=== PATIENT | female | born 1955 | race Caucasian/White ===

== ENCOUNTER 2019-01-22 09:59 | Emergency (ER) | payer BC ==
[2019-01-22] MEDS: ONDANSETRON 4 MG INJ IV (10:51)
[2019-01-22] MEDS: SOD CHLORIDE 0.9% 1,000 ML IV (10:51)
[2019-01-22] MEDS: morphine 4 MG/ML VIAL IV (10:52)
[2019-01-22 10:56] LABS: ADD MAN DIFF? NO
[2019-01-22 11:04] LABS: ADD UMIC YES; UR ASCORBIC ACID NEGATIVE (NEGATIVE); UR BILIRUBIN (Dip) NEGATIVE (NEGATIVE); UR BLOOD (Dip) 1+ mg/dL (NEGATIVE); UR CLARITY CLEAR (CLEAR); UR COLOR YELLOW (YELLOW); UR GLUCOSE (Dip) NEGATIVE (NEGATIVE); UR KETONES (Dip) NEGATIVE (NEGATIVE); UR LEUKOCYTE ESTERASE (Dip) NEGATIVE Leu/ul (NEGATIVE); UR MUCUS FEW /HPF (NONE SEEN); UR NITRITE (Dip) NEGATIVE (NEGATIVE); UR RBC 7 /HPF (0-5); UR SPECIFIC GRAVITY (Dip) 1.015 (1.003-1.030); UR TOTAL PROTEIN (Dip) 2+ mg/dl (NEGATIVE); UR UROBILINOGEN (Dip) NEGATIVE (NEGATIVE); UR WBC 1 /HPF (0-5)
[2019-01-22 11:05] LABS: BASOPHILS % 0.3 % (0.0-2.0); EOSINOPHILS % 0.1 % (0.0-7.0); HEMATOCRIT 38.3 % (37.0-47.0); HEMOGLOBIN 12.9 g/dl (12.0-16.0); LYMPHOCYTES # 1.9 10^3/ul (0.8-2.9); LYMPHOCYTES % 16.8 % (15.0-51.0); MEAN CORPUSCULAR HEMOGLOBIN 30.6 pg (29.0-33.0); MEAN CORPUSCULAR HGB CONC 33.7 g/dl (32.0-37.0); MEAN CORPUSCULAR VOLUME 90.8 fl (82.0-101.0); MEAN PLATELET VOLUME 9.3 fl (7.4-10.4); MONOCYTE # 0.8 10^3/ul (0.3-0.9); MONOCYTES % 7.5 % (0.0-11.0); NEUTROPHIL # 8.3 10^3/ul (1.6-7.5); NEUTROPHILS % 74.9 % (39.0-77.0); PLATELET COUNT 264 10^3/UL (140-415); RED BLOOD COUNT 4.22 10^6/ul (4.20-5.40); RED CELL DISTRIBUTION WIDTH 11.8 % (11.5-14.5)
[2019-01-22 11:23] LABS: ALANINE AMINOTRANSFERASE 14 IU/L (13-69); ALBUMIN 4.2 g/dl (3.3-4.9); ALKALINE PHOSPHATASE 84 IU/L (42-121); ANION GAP 9 (5-13); ASPARTATE AMINO TRANSFERASE 14 IU/L (15-46); BILIRUBIN,INDIRECT 0.5 mg/dl (0-1.1); BILIRUBIN,TOTAL 0.5 mg/dl (0.2-1.3); BLOOD UREA NITROGEN 11 mg/dl (7-20); CALCIUM 9.3 mg/dl (8.4-10.2); CARBON DIOXIDE 27 mmol/L (21-31); CHLORIDE 104 mmol/L (97-110); CREATININE 0.49 mg/dl (0.44-1.00); Estimated GFR > 60 mL/min (>60); GLUCOSE 109 mg/dl (70-220); LIPASE 24 U/L (23-300); POTASSIUM 4.2 mmol/L (3.5-5.1); SODIUM 140 mmol/L (135-144); TOTAL PROTEIN 7.7 g/dl (6.1-8.1)
[2019-01-22] MEDS: CIPROFLOXACIN 500 MG TAB PO (13:38)
[2019-01-22] MEDS: metroNIDAZOLE 500 MG TAB PO (13:39)
== END 2019-01-22 13:52 | disposition home or self-care (01) ==
LOC: E/R 09:59
DX: K57.32 Diverticulitis of large intestine without perforation or abscess without bleeding (principal); I10 Essential (primary) hypertension; Z87.891 Personal history of nicotine dependence
CPT/HCPCS: 36415; 74176; 80053; 81001; 83690; 85025; 96374; 96375; 99285-25

== ENCOUNTER 2019-02-02 12:53 | Inpatient (IN) | payer BC ==
[2019-02-02] MEDS: ONDANSETRON 4 MG INJ IV (13:23)
[2019-02-02] MEDS: morphine 4 MG/ML VIAL IV (13:23)
[2019-02-02] MEDS: SOD CHLORIDE 0.9% 1,000 ML IV (13:23)
[2019-02-02 13:37] LABS: ADD MAN DIFF? NO
[2019-02-02] MEDS: FLUCONAZOLE 100 MG TAB PO (13:37)
[2019-02-02 13:42] LABS: BASOPHILS % 0.3 % (0.0-2.0); EOSINOPHILS % 0.6 % (0.0-7.0); HEMATOCRIT 41.1 % (37.0-47.0); HEMOGLOBIN 13.7 g/dl (12.0-16.0); LYMPHOCYTES # 1.7 10^3/ul (0.8-2.9); LYMPHOCYTES % 25.5 % (15.0-51.0); MEAN CORPUSCULAR HEMOGLOBIN 30.1 pg (29.0-33.0); MEAN CORPUSCULAR HGB CONC 33.3 g/dl (32.0-37.0); MEAN CORPUSCULAR VOLUME 90.3 fl (82.0-101.0); MEAN PLATELET VOLUME 8.5 fl (7.4-10.4); MONOCYTE # 0.4 10^3/ul (0.3-0.9); MONOCYTES % 6.7 % (0.0-11.0); NEUTROPHIL # 4.3 10^3/ul (1.6-7.5); NEUTROPHILS % 66.3 % (39.0-77.0); PLATELET COUNT 426 10^3/UL (140-415); RED BLOOD COUNT 4.55 10^6/ul (4.20-5.40)
[2019-02-02 13:42] LABS: WHITE BLOOD COUNT 6.6 10^3/ul (4.8-10.8)
[2019-02-02 13:54] LABS: ADD UMIC YES; UR ASCORBIC ACID NEGATIVE (NEGATIVE); UR BILIRUBIN (Dip) NEGATIVE (NEGATIVE); UR BLOOD (Dip) 1+ mg/dL (NEGATIVE); UR CLARITY CLEAR (CLEAR); UR COLOR COLORLESS (YELLOW); UR GLUCOSE (Dip) NEGATIVE (NEGATIVE); UR KETONES (Dip) NEGATIVE (NEGATIVE); UR LEUKOCYTE ESTERASE (Dip) NEGATIVE Leu/ul (NEGATIVE); UR NITRITE (Dip) NEGATIVE (NEGATIVE); UR RBC 0 /HPF (0-5); UR SPECIFIC GRAVITY (Dip) 1.004 (1.003-1.030); UR TOTAL PROTEIN (Dip) NEGATIVE (NEGATIVE); UR UROBILINOGEN (Dip) NEGATIVE (NEGATIVE); UR WBC 0 /HPF (0-5)
[2019-02-02 14:03] LABS: INR 0.93; PROTIME 12.6 Sec (11.9-14.9)
[2019-02-02 14:04] LABS: ALANINE AMINOTRANSFERASE 19 IU/L (13-69); ALBUMIN 4.1 g/dl (3.3-4.9); ALBUMIN/GLOBULIN RATIO 1.28; ALKALINE PHOSPHATASE 72 IU/L (42-121); ANION GAP 7 (5-13); ASPARTATE AMINO TRANSFERASE 21 IU/L (15-46); BILIRUBIN,INDIRECT 0.3 mg/dl (0-1.1); BILIRUBIN,TOTAL 0.3 mg/dl (0.2-1.3); BLOOD UREA NITROGEN 9 mg/dl (7-20); CALCIUM 9.4 mg/dl (8.4-10.2); CARBON DIOXIDE 27 mmol/L (21-31); CHLORIDE 105 mmol/L (97-110); CREATININE 0.46 mg/dl (0.44-1.00); Estimated GFR > 60 mL/min (>60); GLUCOSE 111 mg/dl (70-220); POTASSIUM 3.9 mmol/L (3.5-5.1); SODIUM 139 mmol/L (135-144); TOTAL PROTEIN 7.3 g/dl (6.1-8.1)
[2019-02-02] MEDS: IOHEXOL 300MG/ML 150 ML BTL (14:56)
[2019-02-02] MEDS: SOD CHLORIDE 0.9% 100 ML (14:56)
[2019-02-02] MEDS: AMPICILLIN/SULB 3 GM/NS (PMX) 100 ML IVPB (16:21)
[2019-02-02] MEDS ORDERED: HYDROmorphONE 0.5 MG/0.5 ML SYG IV (16:30)
[2019-02-02] MEDS ORDERED: NACL 0.9% 3 ML SYG IV (16:30)
[2019-02-02] MEDS ORDERED: ACETAMINOPHEN 325 MG TAB PO (16:30)
[2019-02-02] MEDS: MEROPENEM 1 GM/50ML(PMX) 50 ML IVPB ×2 (17:00→21:11)
[2019-02-02] MEDS: TIMOLOL 0.5% 5 ML OPH BOTH EYES (21:00)
[2019-02-02] MEDS: LATANOPROST 0.005% 2.5 ML OPH BOTH EYES ×2 (21:27→21:28)
[2019-02-03] MEDS: MEROPENEM 1 GM/50ML(PMX) 50 ML IVPB ×2 (05:16→13:39)
[2019-02-03 06:10] LABS: ADD MAN DIFF? NO
[2019-02-03 06:20] LABS: WHITE BLOOD COUNT 5.9 10^3/ul (4.8-10.8)
[2019-02-03 06:20] LABS: BASOPHILS % 0.5 % (0.0-2.0); EOSINOPHILS # 0.1 10^3/ul (0.0-0.5); EOSINOPHILS % 1.2 % (0.0-7.0); HEMATOCRIT 37.6 % (37.0-47.0); HEMOGLOBIN 12.5 g/dl (12.0-16.0); LYMPHOCYTES # 2.4 10^3/ul (0.8-2.9); LYMPHOCYTES % 41.4 % (15.0-51.0); MEAN CORPUSCULAR HEMOGLOBIN 30.6 pg (29.0-33.0); MEAN CORPUSCULAR HGB CONC 33.2 g/dl (32.0-37.0); MEAN CORPUSCULAR VOLUME 92.2 fl (82.0-101.0); MEAN PLATELET VOLUME 8.9 fl (7.4-10.4); MONOCYTE # 0.4 10^3/ul (0.3-0.9); NEUTROPHILS % 50.6 % (39.0-77.0); PLATELET COUNT 374 10^3/UL (140-415); RED BLOOD COUNT 4.08 10^6/ul (4.20-5.40); RED CELL DISTRIBUTION WIDTH 12.2 % (11.5-14.5)
[2019-02-03 07:00] LABS: ALANINE AMINOTRANSFERASE 22 IU/L (13-69); ALBUMIN 3.3 g/dl (3.3-4.9); ALBUMIN/GLOBULIN RATIO 1.06; ALKALINE PHOSPHATASE 60 IU/L (42-121); ANION GAP 6 (5-13); ASPARTATE AMINO TRANSFERASE 20 IU/L (15-46); BILIRUBIN,INDIRECT 0.3 mg/dl (0-1.1); BILIRUBIN,TOTAL 0.3 mg/dl (0.2-1.3); BLOOD UREA NITROGEN 10 mg/dl (7-20); CARBON DIOXIDE 27 mmol/L (21-31); CHLORIDE 107 mmol/L (97-110); CREATININE 0.47 mg/dl (0.44-1.00); Estimated GFR > 60 mL/min (>60); GLUCOSE 96 mg/dl (70-220); POTASSIUM 4.2 mmol/L (3.5-5.1); SODIUM 140 mmol/L (135-144); TOTAL PROTEIN 6.4 g/dl (6.1-8.1)
[2019-02-03 07:41] LABS: HEMOGLOBIN A1C 5.9 % (0-5.9)
[2019-02-03] MEDS: TIMOLOL 0.5% 5 ML OPH BOTH EYES (08:40)
[2019-02-03] MEDS: ONDANSETRON 4 MG INJ IV (08:46)
[2019-02-03] MEDS ORDERED: ONDANSETRON 4 MG INJ IV ×2 (10:00)
[2019-02-03] MEDS ORDERED: ACETAMINOPHEN 325 MG TAB (14:06)
[2019-02-03] MEDS: ACETAMINOPHEN 500 MG TAB PO (14:18)
== END 2019-02-03 16:45 | disposition home or self-care (01) | DRG 392 ==
LOC: PP2 17:22 → FTE 12:53 → PP2 16:28
DX: K57.92 Diverticulitis of intestine, part unspecified, without perforation or abscess without bleeding (principal)
CPT/HCPCS: 74177; 80053; 81001; 83036; 85025; 85610; 85730; 87086; 96374; 96375; 99285-25